=== PATIENT | male | born 1955 | race African-American/Black ===

== ENCOUNTER 2016-05-07 15:03 | Emergency (ER) | payer OTHER ==
[~2016-05-07] VITALS: Ht 182.9 cm; Wt 86.2 kg
[~2016-05-07 15:03] MED LIST: ABILIFY15 MG ORAL; ANUSOL-HC30 GM RC; BACTRIM DS TAB1 EAC1 ORAL; BACTRIM-DS1 EA ORAL; CLINDAMYCIN HC300 MG ORAL; COLACE100 MG ORAL; HYDROCODON-ACE1 EA15 ORAL; IBUPROFEN600 MG ORAL; KEFLEX500 MG ORAL; NORCO 5-325 TA1 EACH ORAL; TRAMADOL HCL50 MG ORAL; TRAZODONE HCL100 MG ORAL; UNOBMED
[2016-05-07] MEDS ORDERED: DiphenhydrAMINE 50mg/ml Inj ONE (16:08)
[2016-05-07] MEDS ORDERED: Haloperidol 5mg/ml Inj ONE (16:08)
[2016-05-07] MEDS ORDERED: LORazepam Inj 2mg/ml 1ml ONE (16:08)
[2016-05-07] MEDS ORDERED: LORazepam Inj 2mg/ml 1ml IM ONE (16:30)
[2016-05-07] MEDS ORDERED: Haloperidol 5mg/ml Inj IM ONE (16:30)
[2016-05-07] MEDS ORDERED: DiphenhydrAMINE 50mg/ml Inj IM ONE (16:30)
[2016-05-07 16:46] LABS: APPEARANCE,URINE CLEAR; KETONES,URINE NEGATIVE (NEGATIVE); LEUKOCYTE ESTERASE ,URINE NEGATIVE (NEGATIVE); NITRITE,URINE NEGATIVE (NEGATIVE); PH,URINE 8 (4.5-8.0); PROTEIN,URINE NEGATIVE (NEGATIVE); UROBILINOGEN,URINE NORMAL MG/DL (0.0-1.0)
--- NOTE | 2016-05-07 17:07 | Emergency Room Report ---
History of Present Illness General Chief Complaint: Altered Level of Consciousness Source: EMS Present Illness HPI 60 YO M BIBEMS for ?AMS. Bystander called EMS after patient found supine on ground. Glucose normal. Atraumatic at scene. Patient not providing additional info at this time. Review of EMR shows multiple ED visits for minor complaints. No documented known PMHx. Patient tried to walk out of ED but was unsteady/wobbling on feet. Would only answer "yes" to anything I asked him. Refused to sit in stretcher and became combative physically and tried to fight RN/MD. Had to be physically restrained for his and our safety and then sedated. Allergies: Coded Allergies: No Known Allergies (Unverified , 10/10/13) Patient History Past Medical History: unable to obtain Past Surgical History: unable to obtain Pertinent Family History: unable to obtain Nursing Documentation-PMH Past Medical History Deferred: Pt Cognitively Impaired Past Medical History: Deferred Hx Hypertension: Yes Review of Systems All Other Systems: limited - AMS Physical Exam Vital Signs Date Time Temp Pulse Resp B/P Pulse Ox O2 Delivery O2 Flow Rate FiO2 05/07/16 15:03 98.2 115 18 189/115 99 Room Air Sp02 EP Interpretation: reviewed, normal General Appearance: normal inspection, well appearing, no apparent distress, alert Head: normocephalic, atraumatic Eyes: bilateral eye EOMI, bilateral eye PERRL ENT: normal ENT inspection, hearing grossly normal, normal voice Neck: normal inspection, full range of motion, supple, no meningismus, no bony tend Respiratory: normal inspection, lungs clear, normal breath sounds, no respiratory distress, no retraction, no wheezing Cardiovascular #1: regular rate, rhythm, no edema Gastrointestinal: normal inspection, normal bowel sounds, non tender, soft, no guarding, no hernia Genitourinary: no CVA tenderness Musculoskeletal: normal inspection, back normal, normal range of motion, Neal' s Sign negative Neurologic: normal inspection, alert, responsive, rcis III-XII nml as tested, motor strength/tone normal, speech normal Psychiatric: normal inspection, other - Patient staring straight ahead, abnormal flat affect. becomes intermittently combative but calms down Medical Decision Making Diagnostic Impression: Primary Impression: Altered level of consciousness Additional Impressions: PCP (phencyclidine) abuse Cocaine abuse Opiate abuse, episodic ER Course 60 YO M with ?AMS, found on street. Atrauamtic VSS. Afebrile. Had to be sedated for his/our safety and for appropriate workup of AMS Labs: No leuks/ H&H stable. CK mild elevation Utox + for PCP, cocaine, opiates A: Mild rhabdo. No JODY. IVF provided. CT head negative for acute trauma, CVA, other explanation for possible AMS Endorsed to Dr Wilkinson for ultimate disposition following sobriety EKG Diagnostic Results Rate: normal ST Segments: no acute changes ASA given to the pt in ED: No Rhythm Strip Diag. Results EP Interpretation: yes Rate: 100 Rhythm: NSR, no PVC's, no ectopy Chest X-Ray Diagnostic Results EP Interpretation: Yes Findings: no consolidation, no effusion, no pneumothorax, other - no acute changes on CXR compared to last CXR from 2014 Number of Views: 1 Last Vital Signs Date Time Temp Pulse Resp B/P Pulse Ox O2 Delivery O2 Flow Rate FiO2 05/07/16 15:03 98.2 115 18 189/115 99 Room Air Status: improved Disposition: ADMITTED INPATIENT Condition: Serious Referrals: [facility],REFERRING (PCP) ANGEL HARDIN M.D. May 07, 2016 17:07
[2016-05-07 17:20] LABS: BASOPHILS % (AUTO) 2.2 % (0.0-2.0); EOSINOPHILS % (AUTO) 1.3 % (0.0-3.0); LYMPHOCYTES % (AUTO) 29.3 % (20.0-45.0); MEAN CORPUSCULAR HEMOGLOBIN 28.9 PG (27.0-31.0); MEAN CORPUSCULAR HGB CONC 32.8 G/DL (32.0-36.0); MEAN CORPUSCULAR VOLUME 88 FL (80-99); MEAN PLATELET VOLUME 5.7 FL (6.5-10.1); MONOCYTES % (AUTO) 5.9 % (1.0-10.0); NEUTROPHILS % (AUTO) 61.4 % (45.0-75.0); PLATELET COUNT 142 K/UL (150-450); RED BLOOD COUNT 5.18 M/UL (4.70-6.10); WHITE BLOOD COUNT 7.7 K/UL (4.8-10.8)
[2016-05-07 17:35] LABS: TROPONIN I < 0.30 ng/mL (<=0.30)
[2016-05-07 17:39] LABS: ALANINE AMINOTRANSFERASE 17 U/L (3-41); ANION GAP 15 (5-15); ASPARTATE AMINO TRANSFERASE 25 U/L (5-40); CALCIUM 9.8 mg/dL (8.6-10.2); CARBON DIOXIDE 26 mEQ/L (20-30); CHLORIDE 98 mEQ/L (98-107); GLOMERULAR FILTRATION RATE > 60 mL/min (>60); HEMOLYSIS 6; POTASSIUM 3.6 mEQ/L (3.4-4.9); SODIUM 139 mEQ/L (135-145)
[2016-05-07 17:45] VITALS: BP 109/67
[2016-05-07 17:49] LABS: CKMB 5.5 ng/mL (< 6.7)
[2016-05-07 19:45] VITALS: BP 106/67
[2016-05-07 22:03] VITALS: BP 111/67
[2016-05-07 23:20] VITALS: BP 119/73
--- NOTE | 2016-05-07 23:36 | History and Physical ---
History of Present Illness General Date patient seen: May 07, 2016 Reason for Hospitalization: Altered Level of Consciousness Present Illness HPI Patient is a 60 yo gentle man with pmhx of HTN polysubstance abuse who presented to [facility] after a complaint of altered level of conciousness. Patient was apparently very non complaint in the emergency room and refused to sit in stretcher and became combative physically and tried to fight RN/MD. Patient subsequently had to be physically restrained for his and safety of staff. A complete diagnostic work up has been initiated to investigate the patients apparent altered sensorium, toxicology has also been requested. Allergies: Coded Allergies: No Known Allergies (Unverified , 10/10/13) Medication History Scheduled Aripiprazole* (Abilify*), 15 MG ORAL DAILY, (Reported) Trazodone Hcl* (Desyrel*), 100 MG ORAL BEDTIME, (Reported) Trimethoprim/Sulfamethoxazole 160/800* (Bactrim Ds Tablet*), 1 TAB ORAL Q12H Trimethoprim/Sulfamethoxazole 160/800* (Bactrim Ds Tablet*), 1 TAB ORAL Q12H Scheduled PRN Hydrocodone/Acetaminophen 5-325* (Hydrocodone/Acetaminophen 5-325*), 1 TAB ORAL Q6H PRN for For Pain Tramadol Hcl* (Ultram*), 50 MG ORAL Q6H PRN for For Pain, (Reported) Patient History Healthcare decision maker Resuscitation status Advanced Directive on File Review of Systems Constitutional: Reports: malaise, weakness Psychiatric: Reports: anxiety, see HPI Neurological: Reports: see HPI Physical Exam General Appearance: confused, moderate distress, agitated, combative Lines, tubes and drains: peripheral HEENT: normocephalic, atraumatic, PERRL Neck: non-tender, normal alignment, supple Respiratory/Chest: chest wall non-tender, normal breath sounds, accessory muscle use Breasts: no masses Cardiovascular/Chest: no gallop/murmur, no JVD, tachycardia Abdomen: normal bowel sounds, non tender, soft, no organomegaly Genitourinary/Rectal: normal genital exam, normal rectal exam Extremities: normal range of motion, non-tender, normal inspection Skin Exam: normal pigmentation, palled Neurologic: 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 raiser 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 grossly normal, disoriented Last 24 Hour Vital Signs Date Time Temp Pulse Resp B/P Pulse Ox O2 Delivery O2 Flow Rate FiO2 05/07/16 22:03 98.2 74 13 111/67 99 Nasal Cannula 1.0 05/07/16 19:45 72 12 106/67 98 Nasal Cannula 2.0 05/07/16 17:45 97.0 81 14 109/67 97 Nasal Cannula 2.0 05/07/16 15:03 98.2 115 18 189/115 99 Room Air Laboratory Tests Test 05/07/16 16:17 05/07/16 16:57 Urine Color Pale yellow Urine Appearance Clear Urine pH 8 (4.5-8.0) Urine Specific [place] 1.010 (1.005-1.035) Urine Protein Negative (NEGATIVE) Urine Glucose (UA) Negative (NEGATIVE) Urine Ketones Negative (NEGATIVE) Urine Occult Blood Negative (NEGATIVE) Urine Nitrite Negative (NEGATIVE) Urine Bilirubin Negative (NEGATIVE) Urine Urobilinogen Normal MG/DL (0.0-1.0) Urine Leukocyte Esterase Negative (NEGATIVE) Urine Opiates Screen Positive (NEGATIVE) H Urine Barbiturates Screen Negative (NEGATIVE) Phencyclidine (PCP) Screen Positive (NEGATIVE) H Urine Amphetamines Screen Negative (NEGATIVE) Urine Benzodiazepines Screen Negative (NEGATIVE) Urine Cocaine Screen Positive (NEGATIVE) H Urine Marijuana (THC) Screen Negative (NEGATIVE) White Blood Count 7.7 K/UL (4.8-10.8) Red Blood Count 5.18 M/UL (4.70-6.10) Hemoglobin 15.0 G/DL (14.2-18.0) Hematocrit 45.7 % (42.0-52.0) Mean Corpuscular Volume 88 FL (80-99) Mean Corpuscular Hemoglobin 28.9 PG (27.0-31.0) Mean Corpuscular Hemoglobin Concent 32.8 G/DL (32.0-36.0) Red Cell Distribution Width 13.0 % (11.6-14.8) Platelet Count 142 K/UL (150-450) L Mean Platelet Volume 5.7 FL (6.5-10.1) L Neutrophils (%) (Auto) 61.4 % (45.0-75.0) Lymphocytes (%) (Auto) 29.3 % (20.0-45.0) Monocytes (%) (Auto) 5.9 % (1.0-10.0) Eosinophils (%) (Auto) 1.3 % (0.0-3.0) Basophils (%) (Auto) 2.2 % (0.0-2.0) H Sodium Level 139 mEQ/L (135-145) Potassium Level 3.6 mEQ/L (3.4-4.9) Chloride Level 98 mEQ/L (98-107) Carbon Dioxide Level 26 mEQ/L (20-30) Anion Gap 15 (5-15) Blood Urea Nitrogen 12 mg/dL (7-23) Creatinine 1.0 mg/dL (0.7-1.2) Estimat Glomerular Filtration Rate > 60 mL/min (>60) Glucose Level 113 mg/dL (74-106) H Calcium Level 9.8 mg/dL (8.6-10.2) Total Bilirubin 0.3 mg/dL (0.0-1.2) Aspartate Amino Transf (AST/SGOT) 25 U/L (5-40) Alanine Aminotransferase (ALT/SGPT) 17 U/L (3-41) Alkaline Phosphatase 127 U/L (40-129) Total Creatine Kinase 538 U/L (38-174) H Creatine Kinase MB 5.5 ng/mL (< 6.7) Creatine Kinase MB Relative Index 1.0 Troponin I < 0.30 ng/mL (<=0.30) Total Protein 8.0 g/dL (6.6-8.7) Albumin 4.0 g/dL (3.5-5.2) Globulin 4.0 g/dL Albumin/Globulin Ratio 1.0 (1.0-2.7) Height (Feet): 6 Weight (Pounds): 190 Medications Current Medications Medications (Trade) Dose Ordered Sig/Stephen Route PRN Reason Start Time Stop Time Status Last Admin Dose Admin Acetaminophen (Tylenol) 650 mg Q4H PRN ORAL fever 05/07/16 23:45 06/06/16 23:44 UNV Acetaminophen/ Hydrocodone Bitart (Willis 5/325) 1 tab Q6H PRN ORAL For Pain 05/07/16 23:45 05/14/16 23:44 UNV Al Hydroxide/Mg Hydroxide (Mylanta II) 30 ml Q6H PRN ORAL dyspepsia 05/07/16 23:45 06/06/16 23:44 UNV Aripiprazole (Abilify) 15 mg DAILY ORAL 05/08/16 09:00 06/07/16 08:59 UNV Dextrose (Dextrose 50%) STAT PRN IV Hypoglycemia 05/07/16 23:45 06/06/16 23:44 UNV Lorazepam (Ativan 2mg/ml 1ml) 0.5 mg Q4H PRN IV For Anxiety 05/07/16 23:45 05/14/16 23:44 UNV Morphine Sulfate (Morphine Sulfate) 1 mg EVERY 4 HOURS PRN IVP For Pain 05/07/16 23:45 05/14/16 23:44 UNV Ondansetron HCl (Zofran) 4 mg Q6H PRN IVP Nausea & Vomiting 05/07/16 23:45 06/06/16 23:44 UNV Polyethylene Glycol (Miralax) 17 gm HSPRN PRN ORAL Constipation 05/07/16 23:45 06/06/16 23:44 UNV Trazodone HCl (Desyrel) 100 mg BEDTIME ORAL 05/08/16 21:00 06/07/16 20:59 UNV Zolpidem Tartrate (Ambien) 5 mg HSPRN PRN ORAL Insomnia 05/07/16 23:45 06/06/16 23:44 UNV Assessment/Plan Problem List: (1) Cocaine abuse ICD Codes: F14.10 - Cocaine abuse, uncomplicated SNOMED: 71728162, 463740821 (2) PCP (phencyclidine) abuse ICD Codes: F16.10 - Hallucinogen abuse, uncomplicated SNOMED: 2443879 (3) Altered level of consciousness ICD Codes: R40.4 - Transient alteration of awareness SNOMED: 9964685 Status: stable YVETTE NGUYỄN May 07, 2016 23:36
[2016-05-07] MEDS ORDERED: Morphine Sulfate 2mg/ml Inj IVP PRN (23:45)
[2016-05-07] MEDS ORDERED: Zolpidem 5mg tab ORAL PRN (23:45)
[2016-05-07] MEDS ORDERED: LORazepam Inj 2mg/ml 1ml IV PRN (23:45)
[2016-05-07] MEDS ORDERED: Miralax 17gm pkt ORAL PRN (23:45)
[2016-05-07] MEDS ORDERED: Norco 5mg/325mg tab ORAL PRN (23:45)
[2016-05-07] MEDS ORDERED: Mylanta II UD 30ml ORAL PRN (23:45)
[2016-05-08 01:00] VITALS: BP 130/75
[2016-05-08 02:30] VITALS: BP 128/76
[2016-05-08 03:35] VITALS: BP 123/75
[2016-05-08 05:00] VITALS: BP 142/88
[2016-05-08 07:23] VITALS: BP 122/62
--- NOTE | 2016-05-08 10:06 | Diagnostic Imaging Report ---
Indication: Cough Technique: XRAY CHEST 1 V Comparison: 12/12/14 Findings: Cardiomediastinal silhouette is stable. Mild linear opacities are noted of the lung bases. Degenerative changes of the spine are seen. There is no obvious consolidation or pleural effusion. Impression: Mild linear lung base opacities probably representing atelectasis. Clinical correlation/followup recommended.
[2016-05-08 10:20] VITALS: BP 126/60
--- NOTE | 2016-05-08 10:22 | Emergency Room Report ---
History of Present Illness General Chief Complaint: Altered Level of Consciousness Source: EMS Present Illness Allergies: Coded Allergies: No Known Allergies (Unverified , 10/10/13) Nursing Documentation-PMH Past Medical History Deferred: Pt Cognitively Impaired Past Medical History: Deferred Hx Hypertension: Yes Physical Exam Vital Signs Date Time Temp Pulse Resp B/P Pulse Ox O2 Delivery O2 Flow Rate FiO2 05/07/16 15:03 98.2 115 18 189/115 99 Room Air 05/07/16 17:45 2.0 Medical Decision Making Diagnostic Impression: Primary Impression: PCP (phencyclidine) abuse Additional Impressions: [id number] Cocaine abuse ER Course Please refer to the note for the history exam and presentation Patient required chemical sedation after his initial presentation Was observed in the emergency room for extended period time At this time continues to do better Patient had 10:30 in the morning now is awake oriented Taking oral intake and will like to go home Patient appears to have had reaction to multiple medication ingestion At this time stable for close outpatient followup Labs Test 05/07/16 16:17 05/07/16 16:57 Urine Color Pale yellow Urine Appearance Clear Urine pH 8 (4.5-8.0) Urine Specific [place] 1.010 (1.005-1.035) Urine Protein Negative (NEGATIVE) Urine Glucose (UA) Negative (NEGATIVE) Urine Ketones Negative (NEGATIVE) Urine Occult Blood Negative (NEGATIVE) Urine Nitrite Negative (NEGATIVE) Urine Bilirubin Negative (NEGATIVE) Urine Urobilinogen Normal MG/DL (0.0-1.0) Urine Leukocyte Esterase Negative (NEGATIVE) Urine Opiates Screen Positive (NEGATIVE) Urine Barbiturates Screen Negative (NEGATIVE) Phencyclidine (PCP) Screen Positive (NEGATIVE) Urine Amphetamines Screen Negative (NEGATIVE) Urine Benzodiazepines Screen Negative (NEGATIVE) Urine Cocaine Screen Positive (NEGATIVE) Urine Marijuana (THC) Screen Negative (NEGATIVE) White Blood Count 7.7 K/UL (4.8-10.8) Red Blood Count 5.18 M/UL (4.70-6.10) Hemoglobin 15.0 G/DL (14.2-18.0) Hematocrit 45.7 % (42.0-52.0) Mean Corpuscular Volume 88 FL (80-99) Mean Corpuscular Hemoglobin 28.9 PG (27.0-31.0) Mean Corpuscular Hemoglobin Concent 32.8 G/DL (32.0-36.0) Red Cell Distribution Width 13.0 % (11.6-14.8) Platelet Count 142 K/UL (150-450) Mean Platelet Volume 5.7 FL (6.5-10.1) Neutrophils (%) (Auto) 61.4 % (45.0-75.0) Lymphocytes (%) (Auto) 29.3 % (20.0-45.0) Monocytes (%) (Auto) 5.9 % (1.0-10.0) Eosinophils (%) (Auto) 1.3 % (0.0-3.0) Basophils (%) (Auto) 2.2 % (0.0-2.0) Sodium Level 139 mEQ/L (135-145) Potassium Level 3.6 mEQ/L (3.4-4.9) Chloride Level 98 mEQ/L (98-107) Carbon Dioxide Level 26 mEQ/L (20-30) Anion Gap 15 (5-15) Blood Urea Nitrogen 12 mg/dL (7-23) Creatinine 1.0 mg/dL (0.7-1.2) Estimat Glomerular Filtration Rate > 60 mL/min (>60) Glucose Level 113 mg/dL (74-106) Calcium Level 9.8 mg/dL (8.6-10.2) Total Bilirubin 0.3 mg/dL (0.0-1.2) Aspartate Amino Transf (AST/SGOT) 25 U/L (5-40) Alanine Aminotransferase (ALT/SGPT) 17 U/L (3-41) Alkaline Phosphatase 127 U/L (40-129) Total Creatine Kinase 538 U/L (38-174) Creatine Kinase MB 5.5 ng/mL (< 6.7) Creatine Kinase MB Relative Index 1.0 Troponin I < 0.30 ng/mL (<=0.30) Total Protein 8.0 g/dL (6.6-8.7) Albumin 4.0 g/dL (3.5-5.2) Globulin 4.0 g/dL Albumin/Globulin Ratio 1.0 (1.0-2.7) Rhythm Strip Diag. Results EP Interpretation: yes Rate: 77 Rhythm: NSR, no PVC's, no ectopy Last Vital Signs Date Time Temp Pulse Resp B/P Pulse Ox O2 Delivery O2 Flow Rate FiO2 1/21/17 07:23 98.4 79 15 122/62 96 Room Air 05/08/16 03:35 2.0 Status: improved Disposition: HOME, SELF-CARE Condition: Improved Referrals: [facility],REFERRING (PCP) Patient Instructions: Substance Use Disorder Additional Instructions: Patient is provided with the discharge instructions notified to follow up with primary doctor in the next 2-3 days otherwise return to the er with any worsening symptoms. ARIELLE MELTON D.O. May 08, 2016 10:22
[2016-05-08] MEDS ORDERED: TraZODone 100mg tab ORAL SCH (21:00)
--- NOTE | 2016-05-09 11:46 | Diagnostic Imaging Report ---
Indication: Altered mental status Technique: Continuous helical CT scanning of the head was performed utilizing automated exposure control without intravenous contrast material. Axial and coronal reconstructions were obtained. Comparison: None CT dose: Total DLP 1471 mGycm; CTDI vol 70.4 mGy Findings: There is no acute intracranial hemorrhage, mass effect or cortical edema. The ventricles, cisterns and sulci are within normal limits. The posterior fossa and fourth ventricle are unremarkable. Sellar and suprasellar regions are grossly unremarkable. Visualized mastoid air cells and paranasal sinuses are unremarkable. No focal lesions of the bony calvarium or soft tissues of the scalp are seen. There is a chronic appearing defect of the right medial orbital wall. Impression: No evidence of acute intracranial hemorrhage, mass effect or cortical edema. MRI may be obtained for more sensitive evaluation as clinically indicated. The CT scanner at [facility] is accredited by the [employer] and the scans are performed using protocols designed to limit radiation exposure to as low as reasonably achievable to attain images of sufficient resolution adequate for diagnostic evaluation.
--- NOTE | 2016-05-10 19:10 | Cardiology Report ---
APPROVED REPORT EKG Measurement Heart [id number] [id number] Normal sinus rhythm Normal ECG
== END 2016-05-08 10:20 | disposition home or self-care (01) ==
LOC: ENRESERVDT → ENRESERVTM → EDBD 15:03 → EMR 15:42 → EDBEDREQ 16:45 → 4W 16:55 → UNDOADMIN 16:55 → EDBEDREQ 17:11 → CANBEDREQ 18:06 → EMR 05-08 10:20
DX: R40.4 Transient alteration of awareness (principal); F16.10 Hallucinogen abuse, uncomplicated; F14.10 Cocaine abuse, uncomplicated; F11.10 Opioid abuse, uncomplicated; I10 Essential (primary) hypertension
CPT/HCPCS: 36415; 70450; 71010; 80053; 80300; 81003; 82550; 82553; 84484; 85025; 93005; 96372; 99284; J1200; J1630

== ENCOUNTER 2017-04-11 19:24 | Emergency (ER) | payer OTHER ==
[~2017-04-11] VITALS: Ht 195.6 cm; Wt 90.7 kg
[2017-04-11] MEDS ORDERED: NEURONTIN100 MG ORAL (19:35)
[2017-04-11] MEDS ORDERED: Bacitracin Oint UD TOPIC ONE (19:45)
[2017-04-11] MEDS ORDERED: LORazepam Inj 2mg/ml 1ml IV ONE (19:45)
--- NOTE | 2017-04-11 20:14 | Emergency Room Report ---
History of Present Illness General Chief Complaint: Syncope Source: Patient Present Illness HPI The patient presents after a fall. He was walking outside at his family's. They heard him fall. He states he didn't lose consciousness but the family reported to paramedics that he was unresponsive initially. He does have a history of seizures. They denied seeing any seizure activity. He is somewhat lethargic but was not incontinent of urine or stool. There are also scrapes on the top left-hand side of his head. He states his tetanus is up-to-date. He denied drugs to the paramedics but they question whether he might have had some THC. He denies any neck pain or extremity trauma. The patient takes Neurontin for seizures. No fevers, chest pain, NVD, dysuria, SI or HI, abdominal pain. Allergies: Coded Allergies: No Known Allergies (Unverified , 10/10/13) Patient History Past Medical History: see triage record Social History: Reports: alcohol use, Denies: drug use Social History Narrative with family Reviewed Nursing Documentation: PMH: Agreed, PSxH: Agreed Nursing Documentation-PMH Past Medical History: No History, Except For Hx Hypertension: Yes Hx Seizures: Yes Review of Systems All Other Systems: negative except mentioned in HPI Physical Exam Vital Signs Date Time Temp Pulse Resp B/P (MAP) Pulse Ox O2 Delivery O2 Flow Rate FiO2 04/11/17 19:30 77 16 112/69 99 Room Air Sp02 EP Interpretation: reviewed, normal General Appearance: well appearing, no apparent distress, GCS 15, other - slightly dissociated Head: normocephalic, other - abrasions lacs L upper head Eyes: bilateral eye PERRL, bilateral eye Scleral Injection ENT: moist mucus membranes - no lingual macerations Neck: supple Respiratory: lungs clear, normal breath sounds Cardiovascular #1: regular rate, rhythm Cardiovascular #2: 2+ radial (R) Gastrointestinal: normal inspection, normal bowel sounds, non tender, no mass, non-distended Musculoskeletal: back normal, gait/station normal, normal range of motion Neurologic: alert, oriented x3, 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 Is a history of seizures in the past this is also in the differential. Evaluation needs to be with EKG, CT of the head, chest x-ray and labs. The patient will be treated with Ativan 1 mg. Unable to start IV. Bloods drawn by lab. Tox + -- Ativan cancelled. CT with possible new lacunes (clinically negative). Ambulatory. Mentation completely cleared. Patient stable for outpatient observation and treatment. Laboratory Tests Test 04/11/17 22:09 04/12/17 00:35 Urine Color Yellow Urine Appearance Clear Urine pH 5 (4.5-8.0) Urine Specific [place] 1.015 (1.005-1.035) Urine Protein 1+ (NEGATIVE) H Urine Glucose (UA) Negative (NEGATIVE) Urine Ketones Negative (NEGATIVE) Urine Occult Blood Negative (NEGATIVE) Urine Nitrite Negative (NEGATIVE) Urine Bilirubin Negative (NEGATIVE) Urine Urobilinogen Normal MG/DL (0.0-1.0) Urine Leukocyte Esterase 1+ (NEGATIVE) H Urine RBC 0-2 /HPF (0 - 0) H Urine WBC 2-4 /HPF (0 - 0) Urine Squamous Epithelial Cells Moderate /LPF (NONE/OCC) H Urine Bacteria Few /HPF (NONE) Urine Opiates Screen Negative (NEGATIVE) Urine Barbiturates Screen Negative (NEGATIVE) Phencyclidine (PCP) Screen Positive (NEGATIVE) H Urine Amphetamines Screen Negative (NEGATIVE) Urine Benzodiazepines Screen Negative (NEGATIVE) Urine Cocaine Screen Positive (NEGATIVE) H Urine Marijuana (THC) Screen Positive (NEGATIVE) H White Blood Count 8.8 K/UL (4.8-10.8) Red Blood Count 5.20 M/UL (4.70-6.10) Hemoglobin 15.2 G/DL (14.2-18.0) Hematocrit 45.9 % (42.0-52.0) Mean Corpuscular Volume 88 FL (80-99) Mean Corpuscular Hemoglobin 29.2 PG (27.0-31.0) Mean Corpuscular Hemoglobin Concent 33.0 G/DL (32.0-36.0) Red Cell Distribution Width 11.4 % (11.6-14.8) L Platelet Count 205 K/UL (150-450) Mean Platelet Volume 6.9 FL (6.5-10.1) Neutrophils (%) (Auto) 51.8 % (45.0-75.0) Lymphocytes (%) (Auto) 39.9 % (20.0-45.0) Monocytes (%) (Auto) 5.3 % (1.0-10.0) Eosinophils (%) (Auto) 1.5 % (0.0-3.0) Basophils (%) (Auto) 1.5 % (0.0-2.0) Sodium Level 135 MMOL/L (136-145) L Potassium Level 3.8 MMOL/L (3.5-5.1) Chloride Level 100 MMOL/L (98-107) Carbon Dioxide Level 30 MMOL/L (21-32) Anion Gap 5 mmol/L (5-15) Blood Urea Nitrogen 13 mg/dL (7-18) Creatinine 1.0 MG/DL (0.55-1.30) Estimate Glomerular Filtration Rate > 60 mL/min (>60) Glucose Level 123 MG/DL (74-106) H Lactic Acid Level 0.70 mmol/L (0.66-2.22) Calcium Level 9.1 MG/DL (8.5-10.1) Total Bilirubin 0.4 MG/DL (0.2-1.0) Aspartate Amino Transferase (AST) 21 U/L (15-37) Alanine Aminotransferase (ALT) 18 U/L (12-78) Alkaline Phosphatase 107 U/L (46-116) Total Creatine Kinase 164 U/L (26-308) Troponin I 0.001 ng/mL (0.000-0.056) Total Protein 8.8 G/DL (6.4-8.2) H Albumin 3.7 G/DL (3.4-5.0) Globulin 5.1 g/dL Albumin/Globulin Ratio 0.7 (1.0-2.7) L Salicylates Level 4.5 ug/mL (2.8-20) Acetaminophen Level < 2 MCG/ML (10-30) L Serum Alcohol < 3 mg/dL EKG Diagnostic Results Rate: normal Rhythm: NSR ST Segments: no acute changes Rhythm Strip Diag. Results EP Interpretation: yes Rhythm: NSR, no PVC's, no ectopy Chest X-Ray Diagnostic Results Chest X-Ray Diagnostic Results : Chest X-Ray Ordered: Yes # of Views/Limited/Complete: 1 View Indication: Other Interpretation: no consolidation, no effusion, no pneumothorax, no acute cardiopulmonary disease Impression: No acute disease Electronically Signed by: Electronically signed by Darian Perez MD CT/MRI/US Diagnostic Results CT/MRI/US Diagnostic Results : Imaging Test Ordered: head Impression possible lacunes which might be new from last ct Last Vital Signs Date Time Temp Pulse Resp B/P (MAP) Pulse Ox O2 Delivery O2 Flow Rate FiO2 04/12/17 03:13 78 16 114/90 97 Room Air 04/12/17 03:12 98.0 Status: improved Disposition: HOME, SELF-CARE Condition: Improved Darian Perez M.D. Apr 11, 2017 20:14
[2017-04-11 22:22] LABS: APPEARANCE,URINE CLEAR; KETONES,URINE NEGATIVE (NEGATIVE); LEUKOCYTE ESTERASE ,URINE 1+ (NEGATIVE); NITRITE,URINE NEGATIVE (NEGATIVE); PH,URINE 5 (4.5-8.0); PROTEIN,URINE 1+ (NEGATIVE); UROBILINOGEN,URINE NORMAL MG/DL (0.0-1.0)
[2017-04-11 22:29] LABS: BACTERIA,URINE FEW /HPF; RBC,URINE 0-2 /HPF (0 - 0); SQUAMOUS EPITHELIAL CELL,UR MODERATE /LPF (NONE/OCC)
[2017-04-12 00:56] LABS: BASOPHILS % (AUTO) 1.5 % (0.0-2.0); EOSINOPHILS % (AUTO) 1.5 % (0.0-3.0); LYMPHOCYTES % (AUTO) 39.9 % (20.0-45.0); MEAN CORPUSCULAR HEMOGLOBIN 29.2 PG (27.0-31.0); MEAN CORPUSCULAR VOLUME 88 FL (80-99); MEAN PLATELET VOLUME 6.9 FL (6.5-10.1); MONOCYTES % (AUTO) 5.3 % (1.0-10.0); NEUTROPHILS % (AUTO) 51.8 % (45.0-75.0); PLATELET COUNT 205 K/UL (150-450); RED CELL DISTRIBUTION WIDTH 11.4 % (11.6-14.8); WHITE BLOOD COUNT 8.8 K/UL (4.8-10.8)
[2017-04-12 01:10] LABS: ANION GAP 5 mmol/L (5-15); CALCIUM 9.1 MG/DL (8.5-10.1); CARBON DIOXIDE 30 MMOL/L (21-32); CHLORIDE 100 MMOL/L (98-107); GLOMERULAR FILTRATION RATE > 60 mL/min (>60); POTASSIUM 3.8 MMOL/L (3.5-5.1); SODIUM 135 MMOL/L (136-145)
[2017-04-12 01:15] LABS: ALANINE AMINOTRANSFERASE 18 U/L (12-78); ALBUMIN/GLOBULIN RATIO 0.7 (1.0-2.7); ASPARTATE AMINO TRANSFERASE 21 U/L (15-37); TOTAL PROTEIN 8.8 G/DL (6.4-8.2)
[2017-04-12 01:16] LABS: ACETAMINOPHEN < 2 MCG/ML (10-30); ALCOHOL < 3 mg/dL
[2017-04-12 03:12] VITALS: BP 114/90
[2017-04-12 03:13] VITALS: BP 114/90
--- NOTE | 2017-04-12 09:26 | Diagnostic Imaging Report ---
Indication: Headache Technique: Contiguous 5 mm thick transaxial imaging of the head obtained in a Siemens Sensation [address] scanner. Soft tissue and bone windows generated. Automatic Exposure Control was utilized. Total Dose length Product (DLP): 1573.[address] Dose Index Volume (CTDIvol): 70.38 mGy Comparison: 05/07/2016 Findings: Suggestion of small cystic foci in the upper brandon demonstrated. Confirmation with MRI is recommended. Findings not seen on the last occasion 05/07/2016. It is possible that these are artifact. There is no mass effect or edema. There is no evidence of hemorrhage. The basal cisterns, ventricles and sulci appear normal. The bones are unremarkable. IMPRESSION: Probable small cystic foci within the brandon. Findings may represent age-indeterminate lacunar infarcts. Consider MR for further evaluation. [facility] has communicated the preliminary results to the Emergency Department. Their findings are largely concordant with this report. The CT scanner at is accredited by the [employer] and the scans are performed using dose optimization techniques as appropriate to a performed exam including Automatic Exposure control.
--- NOTE | 2017-04-12 12:22 | Diagnostic Imaging Report ---
Indication: Dyspnea Comparison: 05/07/2016 A single view chest radiograph was obtained. Findings: Cardiomediastinal appearance is within normal limits for age. Pulmonary vascularity is appropriate. The diaphragmatic contour is smooth and costophrenic angles are sharp. No pleural effusions are identified. The bones are unremarkable. Impression: No acute findings
--- NOTE | 2017-04-26 00:25 | Cardiology Report ---
APPROVED REPORT EKG Measurement Heart [id number] [place] [id number] Normal sinus rhythm Cannot rule out Anterior infarct, age undetermined Abnormal ECG
== END 2017-04-12 03:14 | disposition home or self-care (01) ==
LOC: EDUNIT# 19:24 → EDBD 19:24 → EMR 21:30
DX: S09.8XXA Other specified injuries of head, initial encounter (principal); S01.81XA Laceration without foreign body of other part of head, initial encounter; W19.XXXA Unspecified fall, initial encounter; Y93.01 Activity, walking, marching and hiking; Y92.89 Other specified places as the place of occurrence of the external cause; F19.10 Other psychoactive substance abuse, uncomplicated; I10 Essential (primary) hypertension; Z86.69 Personal history of other diseases of the nervous system and sense organs
CPT/HCPCS: 36415; 70450; 71010; 80053; 80307; 80329; 81003; 82550; 83605; 84484; 85025; 93005; 96374; 99284

== ENCOUNTER 2017-07-15 15:22 | Emergency (ER) | payer OTHER ==
[~2017-07-15] VITALS: Ht 195.6 cm; Wt 86.2 kg
[~2017-07-15 15:22] MED LIST changes: +NEURONTIN100 MG ORAL
--- NOTE | 2017-07-15 15:44 | Emergency Room Report ---
History of Present Illness General Chief Complaint: Lower Extremity Injury Source: Patient, Medical Record Present Illness HPI The patient presents with left ankle pain. He states that he was trying to go upstairs when his leg gave out and his left ankle was twisted inwards and he fell. The ankle has been bothering him for 8 months from a previous injury. The pain radiates from his ankle up into his knee. He's been taking [place] to control the pain. He denies any fevers or chills. His last tetanus was less than 10 years ago. He scraped his left shoulder when he fell. There is no loss of consciousness. The pain is rated at 9/10 aching. It's constant and worse when his foot is down. He has been taking Rich[place]. It has helped with the pain. No calf pain or hemoptysis. No chest pain. He is wearing a knee brace (elastic) which he purchased. H/O seizures. Denies LOC or seizure. No fevers, chest pain, cough, NVD, head trauma, headache, abdominal pain. He does wheeze and uses an inhaler. The patient smokes. Denies IVDA, though has tenderness in L deltoid and has had abscesses in the past. Allergies: Coded Allergies: No Known Allergies (Unverified , 10/10/13) Patient History Past Medical History: see triage record, HTN Social History: Reports: smoking, drug use - prior cocaine and PCP Social History Narrative lives in an apartment Reviewed Nursing Documentation: PMH: Agreed; PSxH: Agreed Nursing Documentation-PMH Past Medical History: No History, Except For Hx Hypertension: Yes Hx Seizures: Yes Review of Systems All Other Systems: negative except mentioned in HPI Physical Exam Vital Signs Date Time Temp Pulse Resp B/P (MAP) Pulse Ox O2 Delivery O2 Flow Rate FiO2 07/15/17 15:33 98.3 75 18 117/72 96 Room Air 98.2 General Appearance: well appearing, no apparent distress, GCS 15 Head: normocephalic, atraumatic Eyes: bilateral eye normal inspection, bilateral eye PERRL ENT: hearing grossly normal, normal voice Neck: full range of motion, supple Respiratory: no respiratory distress, speaking full sentences Cardiovascular #2: 2+ radial (R), 2+ dorsalis pedis (L) - capillary fill normal Musculoskeletal: digits/nails normal, normal range of motion, no calf tenderness, pelvis stable, swelling - L ankle with point tenderness dorsolateral ankle, other - has knee brace on. Knee ligaments stabel. Ankle ligaments intact with tenderness laterally Neurologic: alert, motor strength/tone normal, sensory intact Psychiatric: mood/affect normal Skin: no rash, other - early clubbing, abrasions - L shoulder, also has some nodularity L deltoid Medical Decision Making Diagnostic Impression: Primary Impression: Ankle fracture Qualified Codes: S82.892A - Other fracture of left lower leg, initial encounter for closed fracture Additional Impression: Shoulder contusion Qualified Codes: S40.012A - Contusion of left shoulder, initial encounter ER Course Patient presents with left ankle pain with a reinjury several days ago. Differential includes sprain, fracture, contusion. There is no evidence of DVT on that side although there is some edema from the brace that he has on. He also has an abrasion of his left shoulder but range of motion is good. X-rays are indicated. Also the patient will be treated with a shot of Toradol as he started taking [place]. Xray with fracture (old fractures also present). Splint applied by tech. Good position and neurovasc normal as checked by me. (Tender nodule L deltoid with h/o abscesses. Consideration for skin popping. Patient denies.) Discussed smoking cessation. Patient stable for outpatient observation and treatment. Other X-Ray Diagnostic Results Other X-Ray Diagnostic Results : X-Ray ordered: L ankle # of Views/Limited Vs Complete: 3 View Indication: Other EP Interpretation: Yes Interpretation: no dislocation, other - fx and possible old fxs, STS Impression: Other Electronically Signed by: Darian Perez MD Last Vital Signs Date Time Temp Pulse Resp B/P (MAP) Pulse Ox O2 Delivery O2 Flow Rate FiO2 07/15/17 17:34 98.3 79 18 118/72 97 Room Air 98.3 Status: improved Disposition: HOME, SELF-CARE Condition: Improved Darian Perez M.D. Jul 15, 2017 15:44
[2017-07-15] MEDS ORDERED: Ketorolac 60mg Inj IM ONE (15:45)
[2017-07-15] MEDS ORDERED: Bacitracin Oint UD TOPIC ONE (15:45)
--- NOTE | 2017-07-15 16:58 | Diagnostic Imaging Report ---
Indication: Pain status post fall Technique: XRAY Ankle Compl Min 3v L Comparison: No prior left ankle radiographs available for comparison.. Correlation made to prior radiographs of the right ankle. Findings: There is mild bimalleolar soft tissue swelling, more pronounced medially. There are small well corticated/circumscribed ossific densities projecting adjacent to the fibular tip which may be sequela of prior trauma or accessory ossicles. There is question of very subtle erosion or avulsion of the tip of the fibula seen on oblique view.. The ankle mortise is intact on these nonstress views. Alignment of the hindfoot is grossly preserved although partially imaged. No significant ankle joint effusion is seen. No radiopaque foreign body identified. IMPRESSION: Question erosion or slight avulsion fracture of the tip of the fibula of uncertain age. Correlation with site of tenderness recommended. Possibility of inflammatory/metabolic arthritis not excluded. Consider further evaluation with MRI. Additional well corticated densities projecting adjacent to the tip of the fibula may present accessory ossicles or sequela of remote trauma.
[2017-07-15 17:34] VITALS: BP 118/72
== END 2017-07-15 17:36 | disposition home or self-care (01) ==
LOC: EMR 17:30
DX: S82.892A Other fracture of left lower leg, initial encounter for closed fracture (principal); S40.012A Contusion of left shoulder, initial encounter; W10.9XXA Fall (on) (from) unspecified stairs and steps, initial encounter; Y92.9 Unspecified place or not applicable; I10 Essential (primary) hypertension
CPT/HCPCS: 96372; 99283

== ENCOUNTER 2018-09-28 23:20 | Emergency (ER) | payer OTHER ==
[~2018-09-28] VITALS: Ht 195.6 cm; Wt 88.5 kg
[2018-09-28 23:28] VITALS: BP 147/81
--- NOTE | 2018-09-28 23:30 | NUR ---
ED Nurse Note: PAtient walked into ED c/o 01/25 generalized body pain that she reports have been an on going issue for 1 month, patient is hypersensitive to pain, however is able to make full sentences. patient is alert and oriented x4
[2018-09-29] MEDS ORDERED: Thiamine 100mg tab ORAL ONE
--- NOTE | 2018-09-29 00:30 | NUR ---
ED Nurse Note: Spoke with Nursing Panelboard Tank Pumper, Elena regarding availability of thiamine oral, states that no supply in hospital. Dr. Perez aware and notified
[2018-09-29 00:34] LABS: BASOPHILS % (AUTO) 1.5 % (0.0-2.0); EOSINOPHILS % (AUTO) 1.7 % (0.0-3.0); HEMATOCRIT 45.6 % (42.0-52.0); HEMOGLOBIN 15.5 G/DL (14.2-18.0); MEAN CORPUSCULAR VOLUME 86 FL (80-99); NEUTROPHILS % (AUTO) 45.8 % (45.0-75.0); PLATELET COUNT 105 K/UL (150-450); RED BLOOD COUNT 5.28 M/UL (4.70-6.10); RED CELL DISTRIBUTION WIDTH 11.1 % (11.6-14.8); WHITE BLOOD COUNT 7.7 K/UL (4.8-10.8)
[2018-09-29 00:48] LABS: AMMONIA 22 umol/L (11-32); ANION GAP 9 mmol/L (5-15); BLOOD UREA NITROGEN 17 mg/dL (7-18); CARBON DIOXIDE 28 MMOL/L (21-32); CHLORIDE 102 MMOL/L (98-107); CREATININE 0.9 MG/DL (0.55-1.30); POTASSIUM 4.2 MMOL/L (3.5-5.1); SODIUM 139 MMOL/L (136-145)
[2018-09-29 00:59] LABS: ALANINE AMINOTRANSFERASE 28 U/L (12-78); ALBUMIN 4.4 G/DL (3.4-5.0); ALKALINE PHOSPHATASE 100 U/L (46-116); ASPARTATE AMINO TRANSFERASE 43 U/L (15-37); BILIRUBIN,TOTAL 0.5 MG/DL (0.2-1.0); CREATINE KINASE 314 U/L (26-308)
--- NOTE | 2018-09-29 01:15 | NUR ---
ELOPEMENT: Patient is leaving hospital, states that he did not want to wait for his results and wants to go back to his car, Patient was asked to stay however refused. patient is leaving hospital with a steady gait, Dr. Perez notified and aware, all medical devices removed
--- NOTE | 2018-09-29 04:18 | Emergency Room Report ---
History of Present Illness General Chief Complaint: General Complaint Source: Patient Present Illness HPI The patient is complaining about right arm numbness. Also has right shoulder discomfort. He has had injuries there recently. Claims is not taking any medication at this time. He denies head trauma. He is somewhat unsteady on his feet. Claims this is chronic. He denies ingestion of alcohol. According to nursing notes he is denying any pain. To me he says that the shoulder is 6/ 10 and aching nonradiating. He is here with his girlfriend. She is complaining about high blood pressure. (She is testing positive for cocaine.) Patient has a history of seizures. He denies recent seizure activity. Patient smokes. He denies productive cough, hemoptysis. He does have wheezing and uses inhalers. Allergies: Coded Allergies: No Known Allergies (Unverified , 10/10/13) Patient History Past Medical History: see triage record Social History: Reports: smoking Social History Narrative With girlfriend Reviewed Nursing Documentation: PMH: Agreed; PSxH: Agreed Nursing Documentation-PMH Past Medical History: No History, Except For Hx Hypertension: Yes Hx Seizures: Yes Review of Systems All Other Systems: negative except mentioned in HPI Physical Exam Vital Signs Date Time Temp Pulse Resp B/P (MAP) Pulse Ox O2 Delivery O2 Flow Rate FiO2 09/28/18 23:23 98.4 77 18 147/81 (103) 95 Room Air Sp02 EP Interpretation: reviewed, normal General Appearance: well appearing, no apparent distress, GCS 15 Head: normocephalic, atraumatic Eyes: bilateral eye PERRL, bilateral eye Scleral Injection ENT: moist mucus membranes Neck: supple Respiratory: lungs clear, normal breath sounds Cardiovascular #1: regular rate, rhythm Cardiovascular #2: 2+ radial (R) Gastrointestinal: normal inspection, normal bowel sounds, non tender, no mass, non-distended Musculoskeletal: digits/nails normal, gait/station normal - Somewhat unsteady on his feet, normal range of motion, other - Prior AC joint injuries with some tender range of motion of the right shoulder. Neurologic: oriented x3, vulcanized fiber unit operator III-XII nml as tested, motor strength/tone normal , DTRs symmetric, sensory intact - Although Numbness in his right hand, other - Slightly unsteady on his feet Psychiatric: mood/affect normal Skin: normal color, abrasions - Right anterior shoulder which has healed Medical Decision Making Diagnostic Impression: Primary Impression: Arm paresthesia, right Additional Impressions: Status post right shoulder injury Unsteady gait ER Course Patient presents with right arm numbness. Differential includes peripheral neuropathy, posttraumatic numbness, radiculopathy amongst others. Evaluation will be with EKG, chest x-ray and labs. The patient will be treated with thiamine. There is evidence of recent shoulder injury. EKG without injury. Chest x-ray COPD and some degenerative disease of his shoulder. Labs with normal white count. CMP unremarkable. The patient refuses to give urine. Went to "move" his car. Never came back. Drove away at 1:15. Apparently was not coordinated when driving. Laboratory Tests Test 09/29/18 00:10 White Blood Count 7.7 K/UL (4.8-10.8) Red Blood Count 5.28 M/UL (4.70-6.10) Hemoglobin 15.5 G/DL (14.2-18.0) Hematocrit 45.6 % (42.0-52.0) Mean Corpuscular Volume 86 FL (80-99) Mean Corpuscular Hemoglobin 29.4 PG (27.0-31.0) Mean Corpuscular Hemoglobin Concent 34.0 G/DL (32.0-36.0) Red Cell Distribution Width 11.1 % (11.6-14.8) L Platelet Count 105 K/UL (150-450) L Mean Platelet Volume 8.5 FL (6.5-10.1) Neutrophils (%) (Auto) 45.8 % (45.0-75.0) Lymphocytes (%) (Auto) 47.0 % (20.0-45.0) H Monocytes (%) (Auto) 4.0 % (1.0-10.0) Eosinophils (%) (Auto) 1.7 % (0.0-3.0) Basophils (%) (Auto) 1.5 % (0.0-2.0) Sodium Level 139 MMOL/L (136-145) Potassium Level 4.2 MMOL/L (3.5-5.1) Chloride Level 102 MMOL/L (98-107) Carbon Dioxide Level 28 MMOL/L (21-32) Anion Gap 9 mmol/L (5-15) Blood Urea Nitrogen 17 mg/dL (7-18) Creatinine 0.9 MG/DL (0.55-1.30) Estimate Glomerular Filtration Rate > 60 mL/min (>60) Glucose Level 79 MG/DL (74-106) Calcium Level 10.0 MG/DL (8.5-10.1) Total Bilirubin 0.5 MG/DL (0.2-1.0) Aspartate Amino Transferase (AST) 43 U/L (15-37) H Alanine Aminotransferase (ALT) 28 U/L (12-78) Alkaline Phosphatase 100 U/L (46-116) Ammonia 22 umol/L (11-32) Total Creatine Kinase 314 U/L (26-308) H Troponin I 0.000 ng/mL (0.000-0.056) Total Protein 8.7 G/DL (6.4-8.2) H Albumin 4.4 G/DL (3.4-5.0) Globulin 4.3 g/dL Albumin/Globulin Ratio 1.0 (1.0-2.7) Thyroid Stimulating Hormone (TSH) 1.605 uiU/mL (0.358-3.740) Salicylates Level 6.6 ug/mL (2.8-20) Acetaminophen Level < 2 MCG/ML (10-30) L Serum Alcohol < 3 mg/dL EKG Diagnostic Results Rate: normal Rhythm: NSR ST Segments: no acute changes Rhythm Strip Diag. Results EP Interpretation: yes Rhythm: NSR, no PVC's, no ectopy Chest X-Ray Diagnostic Results Chest X-Ray Diagnostic Results : Chest X-Ray Ordered: Yes # of Views/Limited/Complete: 1 View Indication: Other EP Interpretation: Yes Interpretation: no consolidation, no effusion, no pneumothorax, other - COPD and DJD Impression: Other Electronically Signed by: Electronically signed by Darian Perez MD Other X-Ray Diagnostic Results Other X-Ray Diagnostic Results : X-Ray ordered: Right shoulder # of Views/Limited Vs Complete: 3 View Indication: Pain EP Interpretation: Yes Interpretation: no dislocation, no soft tissue swelling, no fractures, other - Possible calcific tendinitis Impression: Other Electronically Signed by: Electronically signed by Darian Perez MD Last Vital Signs Date Time Temp Pulse Resp B/P (MAP) Pulse Ox O2 Delivery O2 Flow Rate FiO2 09/28/18 23:28 98.4 84 18 147/81 95 Room Air Status: unchanged Disposition: ELOPED Condition: Unknown Referrals: [facility]ERR[facility] (PCP) Darian Perez MD Sep 29, 2018 04:18
--- NOTE | 2018-09-29 10:17 | Diagnostic Imaging Report ---
Indication: Right shoulder pain Technique: 3 views of the ] shoulder Comparison: No Findings: Tiny calcific density, of doubtful significance, projects at the superior aspect of the glenohumeral joint. No acute fractures. No dislocations. Joint spaces are preserved. Impression: No definite acute bony trauma Tiny calcific density of the superior aspect of the glenohumeral joint, of doubtful significance may be degenerative in nature or reflect old injury
--- NOTE | 2018-09-29 10:21 | Diagnostic Imaging Report ---
Indication: Chest pain Technique: One view of the chest Comparison: 04/11/2017 Findings: Lungs and pleural spaces are clear. The heart size is normal. There are degenerative changes of the thoracic spine. No significant change Impression: No acute process
--- NOTE | 2018-10-01 13:50 | Cardiology Report ---
APPROVED REPORT EKG Measurement Heart [id number] Normal sinus rhythm Normal ECG
== END 2018-09-29 01:15 | disposition left against medical advice (07) ==
LOC: EMR 23:59
DX: R20.2 Paresthesia of skin (principal); R26.81 Unsteadiness on feet; M25.512 Pain in left shoulder
CPT/HCPCS: 36415; 71045; 80053; 80329; 82140; 82550; 84443; 84484; 85025; 93005; 99282; 99283

== ENCOUNTER 2020-05-20 18:09 | Emergency (ER) | payer OTHER ==
[~2020-05-20] VITALS: Ht 195.6 cm; Wt 83.9 kg
[2020-05-20 18:30] VITALS: BP 119/63
--- NOTE | 2020-05-20 18:30 | NUR ---
ED Nurse Note: Pt walked into ED for c/o cough and chills for 3 days. Pt denies nausea, vomiting, diarrhea. He is alert and orientedx4, amb. Pt has been seen by ERMD. Pt has not been tested for COVID.
[2020-05-20] MEDS ORDERED: Acetaminophen 500mg (ES) tab ORAL ONE (18:45)
--- NOTE | 2020-05-20 19:01 | NUR ---
HAND-OFF: Report given to Estefani RODRIGUEZ.
[2020-05-20] MEDS ORDERED: TYLENOL325 MG ORAL (19:09)
--- NOTE | 2020-05-20 19:10 | Emergency Room Report ---
History of Present Illness General Chief Complaint: Upper Respiratory Illness Source: Patient Present Illness HPI 64-year-old male history of smoking greater than 20 pack years, presents with cough, body aches, subjective fever/chills no aggravating relieving factors severity is moderate, constant no chest pain or shortness of breath no dyspnea on exertion patient presents for evaluation and treatment Allergies: Coded Allergies: No Known Allergies (Unverified , 10/10/13) COVID-19 Screening Contact w/high risk pt: Yes Experienced COVID-19 symptoms?: Yes COVID-19 Testing performed BUNCHER MACHINE: No Patient History Past Medical History: see triage record Social History: Reports: smoking Reviewed Nursing Documentation: PMH: Agreed; PSxH: Agreed Nursing Documentation-PMH Past Medical History: No History, Except For Hx Hypertension: Yes Hx Seizures: Yes Review of Systems All Other Systems: negative except mentioned in HPI Physical Exam Vital Signs Date Time Temp Pulse Resp B/P (MAP) Pulse Ox O2 Delivery O2 Flow Rate FiO2 05/20/20 18:15 98.8 81 17 114/69 (84) 97 Room Air 05/20/20 18:30 99 Sp02 EP Interpretation: reviewed, normal General Appearance: well appearing, no apparent distress, alert Head: normocephalic, atraumatic Eyes: bilateral eye PERRL, bilateral eye EOMI ENT: uvula midline, moist mucus membranes Neck: supple, thyroid normal, supple/symm/no masses Respiratory: lungs clear, no respiratory distress, no retraction, no accessory muscle use Cardiovascular #1: normal peripheral pulses, regular rate, rhythm, no edema, no gallop, no murmur Gastrointestinal: non tender, soft, no guarding, no rebound Musculoskeletal: normal inspection Neurologic: alert, oriented x3 Psychiatric: mood/affect normal Skin: no rash, warm/dry Medical Decision Making Diagnostic Impression: Primary Impression: Upper respiratory infection Qualified Codes: J06.9 - Acute upper respiratory infection, unspecified ER Course 64-year-old male presents with most likely an upper respiratory infection differential also includes Covid no evidence of pneumonia chest x-ray is negative, supportive care disposition home with return precautions follow-up with PCP Chest X-Ray Diagnostic Results Chest X-Ray Diagnostic Results : Chest X-Ray Ordered: Yes # of Views/Limited/Complete: 1 View Indication: Other - Cough EP Interpretation: Yes Interpretation: no consolidation, no effusion, no pneumothorax, no acute cardiopulmonary disease Impression: No acute disease Electronically Signed by: Pieter Moseley MD Last Vital Signs Date Time Temp Pulse Resp B/P (MAP) Pulse Ox O2 Delivery O2 Flow Rate FiO2 05/20/20 18:30 98.8 85 15 119/63 99 Room Air 05/20/20 18:30 99 Disposition: HOME, SELF-CARE Condition: Stable Scripts Acetaminophen (Tylenol) 325 Mg Tablet 650 MG ORAL Q6H PRN for Prn Pain/Headache/Temp > 101, #30 TAB 0 Refills Prov: Pieter Moseley MD 05/20/20 Referrals: [facility] Patient Instructions: Upper Respiratory Infection, Adult Additional Instructions: The patient was provided with discharge instructions, notified to follow-up with a primary care doctor and or specialist in the next 24-48 hours, and to return to the ED if they have worsening of their symptoms. Please note that this report is being documented using [employer] technology. This can lead to erroneous entry secondary to incorrect interpretation by the dictating instrument. Pieter Moseley MD May 20, 2020 19:10
--- NOTE | 2020-05-20 19:14 | NUR ---
ED Nurse Note: Pt cleared by health care Provider for discharge. DC instructions/prescription was given and explained to pt and pt verbalized understanding of teachings. ID band removed. Pt is AAO x4, ambulatory and left with all personal belongings.
[2020-05-20 19:15] VITALS: BP 142/71
--- NOTE | 2020-05-21 11:48 | Diagnostic Imaging Report ---
Indication: Cough Technique: XRAY Chest 1v Comparison: 10/31/2018 Findings: Heart size and mediastinal contours are within normal limits for AP technique. There is no focal airspace consolidation, pneumothorax or pleural effusion. Osseous structures demonstrate no acute abnormality. Impression: No radiographic evidence of acute cardiopulmonary disease.
== END 2020-05-20 19:18 | disposition home or self-care (01) ==
LOC: EMR 19:04
DX: J06.9 Acute upper respiratory infection, unspecified (principal); I10 Essential (primary) hypertension; G40.909 Epilepsy, unspecified, not intractable, without status epilepticus; Z87.891 Personal history of nicotine dependence; Z79.899 Other long term (current) drug therapy
CPT/HCPCS: 71045; Z7502; 99283